=== PATIENT | female | born 2000 | race Hispanic/Latino ===

== ENCOUNTER 2024-05-21 08:03 | Emergency (ER) | payer SELFPAY ==
[2024-05-21] MEDS ORDERED: NA CHLORIDE 0.9% 1,000 ML ONE (08:17)
[2024-05-21 08:24] LABS: Absolute Basophils 0.1 K/uL (0-0.5); Absolute Eosinophils 0.2 K/uL (0-0.5); Absolute Lymphocytes (CBC) 1.2 K/uL (0.7-4.9); Absolute Monocytes 0.4 K/uL (0.1-1.3); Basophils % 0.9 % (0-1.3); Eosinophils % 2.6 % (0-4.4); Hematocrit 37.9 % (36.0-45.0); Hemoglobin 12.3 g/dL (12.0-15.0); Lymphocytes % 13.8 % (15.3-44.8); MCH 26.6 pg (27.0-35.0); MCHC 32.3 g/dL (32.0-36.0); MCV 82.2 fL (80-100); MPV 8.9 fL (7.6-11.3); Monocytes % 4.8 % (3.3-12.3); Neutrophils % 77.9 % (41.7-73.7); Nucleated Red Blood Cells % 0.1 % (0-0); Platelets 218 thou/uL (152-406); RBC Red Blood Cell Count 4.61 M/uL (3.86-4.86)
--- NOTE | 2024-05-21 08:34 | RAD REPORT ---
EXAM: Chest Single View HISTORY: 24 years Female COUGH COMPARISON: None. FINDINGS: LUNGS/PLEURA: The lungs are clear. No pleural effusions or pneumothorax. No pulmonary edema. CARDIAC/MEDIASTINUM: The cardiac silhouette is within normal limits. UPPER ABDOMEN: No significant abnormality. BONES: No acute abnormality. LINES/TUBES/OTHER: N/A IMPRESSION: No evidence of acute cardiopulmonary disease.
[2024-05-21 08:42] LABS: Anion Gap 12.8 mEq/L (5.0-15.0); Potassium 3.8 mEq/L (3.5-5.1)
[2024-05-21 08:44] LABS: Influenza A Ag Negative; Influenza B Ag Negative; SARS-CoV-2 Antigen Rapid Res Negative (Negative)
[2024-05-21 09:44] LABS: Specific Gravity 1.015 (1.005-1.030)
[2024-05-21 09:50] LABS: Specific Gravity 1.015 (1.005-1.030); Urine Bacteria 20-50 /HPF (<20); Urine Bilirubin NEGATIVE (Negative); Urine Blood 2+ (Negative); Urine Clarity Extremely Turbid (Clear); Urine Color Yellow (Yellow); Urine Culture Reflex Order NOT NEEDED; Urine Glucose NEGATIVE (Negative); Urine Ketones NEGATIVE (Negative); Urine Microscopic Reflex YN ORDER UMIC; Urine Mucus Slight /HPF (None Seen); Urine Nitrite NEGATIVE (Negative); Urine Protein 3+ (Negative); Urine RBC <5 /HPF (None Seen); Urine Urobilinogen Normal (Normal)
--- NOTE | 2024-05-21 10:03 | ER ---
Nurse's Notes [facility] Name: Ghazala Adams Age: 24 yrs Sex: Female : 2000 Arrival Date: 05/21/2024 Time: 08:03 Bed 5 Private MD: Diagnosis: Near syncope;Acute upper respiratory infection, unspecified;UTI/ Urinary tract infection, site not specified Presentation: 05/21 08:04 Chief complaint: EMS states: Near syncopal episode while standing at work this morning, hb reports cough, sinus congestion, nausea, body aches, and malaise x 2-3 days. Coronavirus screen: Client presents with at least one sign or symptom that may indicate coronavirus-19. Provider contacted for isolation considerations. Ebola Screen: No symptoms or risks identified at this time. Initial Sepsis Screen: Does the patient meet any 2 criteria? No. Patient's initial sepsis screen is negative. Does the patient have a suspected source of infection? No. Patient's initial sepsis screen is negative. Risk Assessment: Do you want to hurt yourself or someone else? Patient reports no desire to harm self or others. Onset of symptoms was May 21, 2024. 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 - Infectious Disease History:: Denies. - Social history:: Smoking status: Patient denies any tobacco usage or history of. - Family history:: not pertinent. - Hospitalizations: : No recent hospitalization is reported. Screenin:05 [facility] ED Fall Risk Assessment (Adult) History of falling in the last 3 months, aa5 including since admission No falls in past 3 months (0 pts) Confusion or Disorientation No (0 pts) Intoxicated or Sedated No (0 pts) Impaired Gait No (0 pts) Mobility Assist Device Used No (0 pt) Altered Elimination No (0 pt) Score/Fall Risk Level 0 - 2 = Low Risk Oriented to surroundings, Maintained a safe environment, Educated pt \T\ family on fall prevention, incl call for assistance when getting out of bed, Assessed \T\ reinforced patient's understanding of fall precautions. Abuse screen: Denies threats or abuse. Nutritional screening: No deficits noted. Tuberculosis screening: No symptoms or risk factors identified. Assessment: 08:05 General: Appears uncomfortable, Behavior is calm, cooperative, Reports feeling ill for aa5 2-3 days, fatigue for 2-3 days. Pain: Denies pain. Neuro: Level of Consciousness is awake, alert, obeys commands, Oriented to person, place, time, situation. Cardiovascular: Heart tones S1 S2 present Rhythm is regular. Respiratory: Airway is patent Respiratory effort is even, unlabored, Respiratory pattern is regular, symmetrical. GI: Abdomen is flat, non-distended, Bowel sounds present X 4 quads. Abd is soft and non tender X 4 quads. Patient currently denies nausea, vomiting. : No signs and/or symptoms were reported regarding the genitourinary system. EENT: Reports nasal congestion. Derm: Skin is pink, warm \T\ dry. Musculoskeletal: Range of motion: intact in all extremities. 08:21 Reassessment: Patient is alert, oriented x 3, equal unlabored respirations, skin aa5 warm/dry/pink. 09:28 Reassessment: Patient appears in no apparent distress at this time. Patient and/or hb family updated on plan of care and expected duration. Pain level reassessed. Patient is alert, oriented x 3, equal unlabored respirations, skin warm/dry/pink. Vital Signs: 08:04 BP 97 / 67; Pulse 106; Resp 16; Temp 99.2(O); Pulse Ox 98% on R/A; Weight 52.16 kg; hb Height 4 ft. 11 in. ; Pain 3/10; 09:00 BP 103 / 69; Pulse 98; Resp 18; Pulse Ox 100% on R/A; cm10 10:00 BP 111 / 71; Pulse 93; Resp 18; Pulse Ox 100% ; cm10 08:04 Body Mass Index 23.23 (52.16 kg, 149.86 cm) 08:04 Pain Scale: Adult hb ED Course: 08:04 Patient arrived in ED. hb 08:04 Eladio Gallego MD is Attending Physician. rn 08:05 Arm band placed on. aa5 08:05 Patient has correct armband on for positive identification. Bed in low position. Call aa5 light in reach. Side rails up X 1. Pulse ox on. NIBP on. 08:06 Triage completed. hb 08:14 Inga Mccarthy, RN is Primary Nurse. aa5 08:14 Inserted saline lock: 22 gauge in right wrist, using aseptic technique. Blood aa5 collected. Flushed with 10 mL NS. 08:21 COVID swab sent to lab. Flu and/or RSV swab sent to lab. aa5 08:26 XRAY Chest (1 view) In Process Unspecified. EDMS 08:36 EKG done, by ED staff, reviewed by Eladio Gallego MD. em1 09:28 Urinalysis w/ reflexes Sent. hb 09:28 Test, Urine Sent. hb 09:28 Urine collected: clean catch specimen, clear. hb 09:37 No provider procedures requiring assistance completed. aa5 10:11 Provided Education on: Follow-up instructions. cm10 10:11 IV discontinued, intact, bleeding controlled, No redness/swelling at site. Pressure cm10 dressing applied. Administered Medications: 08:21 Drug: NS 0.9% IV 1000 ml IV at 1000 ml once; to be given as a bolus over 60 minutes aa5 Route: IV; Rate: 1000 ml; Site: right wrist; 10:00 Follow up: Response: No adverse reaction; IV Status: Completed infusion; IV Intake: cm10 1000ml Medication: 08:21 VIS not applicable for this client. aa5 Intake: 10:00 IV: 1000ml; Total: 1000ml. cm10 Outcome: 10:03 Discharge ordered by . rn 10:21 Discharged to home ambulatory, with family, cm10 10:21 Condition: good 10:21 Discharge instructions given to patient, Instructed on discharge instructions, follow up and referral plans. medication usage, Demonstrated understanding of instructions, follow-up care, medications, Prescriptions given X 1, 10:21 Patient left the ED. cm10 Signatures: Dispatcher [employer] EDMS Eladio Gallego MD MD rn Martinez, Eric em1 Inga Mccarthy, RN RN aa5 Aster Pyle RN RN hb Martinez, Clarissa, RN RN cm10 Corrections: (The following items were deleted from the chart) 09:37 08:07 Arm band placed on hb aa5 09:38 08:05 General: Appears uncomfortable, Behavior is calm, cooperative, aa5 aa5 09:38 08:05 GI: Abdomen is flat, non-distended, Bowel sounds present X 4 quads. Abd is soft aa5 and non tender X 4 quads. aa5
--- NOTE | 2024-05-21 10:03 | EDPHYS ---
Physician Documentation [facility] Name: Ghazala Adams Age: 24 yrs Sex: Female : 2000 Arrival Date: 05/21/2024 Time: 08:03 Bed 5 Private MD: ED Physician Eladio Gallego HPI: 05/21 08:06 This 24 yrs old Female presents to ER via EMS with complaints of Near Syncope. rn 08:06 The patient has experienced near-syncope. Onset: The symptoms/episode began/occurred rn just prior to arrival. Duration: This was a single episode. Associated injury: The patient did not suffer any apparent associated injury. The patient has not experienced similar symptoms in the past. Patient reports feeling sick for the last 2 days with fever, congestion, cough, headache, malaise, myalgias. No shortness of breath. No chest pain. Denies vomiting or diarrhea. Reports a regular period but denies . No neck stiffness. Went to work today and had near syncopal episode, feels lightheaded. Feels better now.. 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 - Infectious Disease History:: Denies. - Social history:: Smoking status: Patient denies any tobacco usage or history of. - Family history:: not pertinent. - Hospitalizations: : No recent hospitalization is reported. ROS: 08:06 Constitutional: Negative for fever, chills, and weight loss, ENT: Positive for cough rn and congestion Neck: Negative for injury, pain, and swelling, Cardiovascular: Negative for chest pain, palpitations, and edema, Respiratory: Positive for cough, negative for shortness of breath Abdomen/GI: Negative for abdominal pain, nausea, vomiting, diarrhea, and constipation, MS/Extremity: Negative for injury and deformity, Skin: Negative for injury, rash, and discoloration, Neuro: Positive for generalized weakness and malaise Exam: 08:06 Constitutional: This is a well developed, well nourished patient who is awake, alert, rn and in no acute distress. Appears well and nontoxic, comfortable, legs crossed Head/Face: Normocephalic, atraumatic. ENT: Dry mucous membranes, no stridor Neck: Neck supple, no meningismus Cardiovascular: Tachycardic, regular Respiratory: No increased work of breathing, no retractions or nasal flaring. Abdomen/GI: Soft, nontender MS/ Extremity: Pulses equal, no cyanosis. Neuro: Awake and alert, GCS 15 10:06 ECG was reviewed by the Attending Physician. rn Vital Signs: 08:04 BP 97 / 67; Pulse 106; Resp 16; Temp 99.2(O); Pulse Ox 98% on R/A; Weight 52.16 kg; hb Height 4 ft. 11 in. ; Pain 3/10; 09:00 BP 103 / 69; Pulse 98; Resp 18; Pulse Ox 100% on R/A; cm10 10:00 BP 111 / 71; Pulse 93; Resp 18; Pulse Ox 100% ; cm10 08:04 Body Mass Index 23.23 (52.16 kg, 149.86 cm) hb 08:04 Pain Scale: Adult hb MDM: 08:04 Medical Screening Exam initiated rn 10:02 Differential Diagnosis: cardiac arrhythmia, Viral syndrome, COVID, flu, dehydration, rn UTI. Data reviewed: vital signs, nurses notes, lab test result(s), EKG, radiologic studies, plain films, and as a result, I will discharge patient. Counseling: I had a detailed discussion with the patient and/or guardian regarding the historical points, exam findings, and any diagnostic results supporting the discharge/admit diagnosis, lab results, radiology results, the need for outpatient follow up, to return to the emergency department if symptoms worsen or persist or if there are any questions or concerns that arise at home. Response to treatment: the patient's symptoms have markedly improved after treatment, and as a result, I will discharge patient. Special discussion: I discussed with the patient/guardian in detail that at this point there is no indication for admission to the hospital. It is understood, however, that if the symptoms persist or worsen the patient needs to return immediately for re-evaluation. 05/21 08:05 Order name: CBC with Diff; Complete Time: 08:45 rn 05/21 08:05 Order name: Basic Metabolic Panel; Complete Time: 08:45 rn 05/21 08:05 Order name: Test, Urine; Complete Time: 09:47 rn 05/21 08:05 Order name: Urinalysis w/ reflexes; Complete Time: 10:00 rn 05/21 08:05 Order name: COVID-19 Ag + Flu A+B Ag; Complete Time: 08:45 rn 05/21 08:05 Order name: XRAY Chest (1 view); Complete Time: 08:45 rn 05/21 08:05 Order name: EKG; Complete Time: 08:05 rn 05/21 08:05 Order name: IV Start; Complete Time: 08:15 rn 05/21 08:05 Order name: EKG - Nurse/Tech; Complete Time: 08:36 rn EC:06 Rate is 103 beats/min. Rhythm is regular. QRS interval is normal. QT interval is rn normal. No Q waves. T waves are Normal. No ST changes noted. Clinical impression: Sinus tachycardia. Interpreted by me. Reviewed by me. Administered Medications: 08:21 Drug: NS 0.9% IV 1000 ml IV at 1000 ml once; to be given as a bolus over 60 minutes aa5 Route: IV; Rate: 1000 ml; Site: right wrist; 10:00 Follow up: Response: No adverse reaction; IV Status: Completed infusion; IV Intake: cm10 1000ml Disposition Summary: 05/21/24 10:03 Discharge Ordered Notes: Location: Home rn Problem: new rn Symptoms: have improved rn Condition: Stable rn Diagnosis - Near syncope rn - Acute upper respiratory infection, unspecified rn - UTI/ Urinary tract infection, site not specified rn Followup: rn - With: Private Physician - When: As needed - Reason: Recheck today's complaints, Re-evaluation by your physician Discharge Instructions: - Discharge Summary Sheet rn - Upper Respiratory Infection, Adult rn - Urinary Tract Infection, Adult rn Forms: - Medication Reconciliation Form rn - 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 Appears well and nontoxic, comfortable, legs crossed Head/Face: Normocephalic, atraumatic. Neck: Neck supple, no meningismus Cardiovascular: Tachycardic, regular Respiratory: No increased work of breathing, no retractions or nasal flaring. Abdomen/GI: Soft, nontender MS/ Extremity: Pulses equal, no cyanosis. Neuro: Awake and alert, GCS 15 rn
[2024-05-21 10:25] VITALS: TEMP 99.2
[2024-05-21 10:27] VITALS: O2SAT 100
[2024-05-21 10:29] VITALS: BP 111/71
--- NOTE | 2024-05-22 11:19 | EKG ---
Test Date: 2024-05-21 Test Time: 08:35:06 Athletic Instructor: CODIE MEASUREMENT RESULTS: Intervals: Rate: 103 DC: 142 QRSD: 74 QT: 334 QTc: 437 [place]: P: 40 DC: 142 QRS: 98 T: 18 INTERPRETIVE STATEMENTS: Sinus tachycardia Rightward axis Nonspecific T wave abnormality Abnormal ECG No previous ECG available for comparison Electronically Signed On 05-22-24 11:17:40 CDT by Emile Beckman
== END 2024-05-21 10:21 | disposition home or self-care (01) ==
LOC: ER 08:03
DX: R55 Syncope and collapse (principal); J06.9 Acute upper respiratory infection, unspecified; N39.0 Urinary tract infection, site not specified; Z11.52 Encounter for screening for COVID-19
CPT/HCPCS: 36415; 71045; 80048; 81001; 81025; 85025; 87428; 93005; J7030